=== PATIENT | female | born 1990 | race American Indian/Alaskan Native ===

== ENCOUNTER 2016-08-15 22:42 | Emergency (ER) | payer BC ==
[2016-08-15 23:42] LABS: Basophils % (Auto) 0.3 % (0.0-1.8); Eosinophils % (Auto) 2.2 % (0.0-4.3); Hematocrit 41.2 % (30.3-42.9); Hemoglobin 13.3 gm/dl (10.1-14.3); Mean Corpuscular HGB Conc 32 % (30-34); Mean Corpuscular Hemoglobin 28 pg (28-32); Mean Corpuscular Volume 87 fl (79-97); Platelet Count 230 K/mm3 (140-440); Red Blood Count 4.71 M/mm3 (3.65-5.03); Red Cell Distribution Width 14.4 % (13.2-15.2); White Blood Count 5.5 K/mm3 (4.5-11.0)
[2016-08-15 23:58] LABS: Anion Gap 21 mmol/L; BUN/Creatinine Ratio 21.42; Blood Urea Nitrogen 15 mg/dL (7-17); Calcium 9.3 mg/dL (8.4-10.2); Carbon Dioxide 18 mmol/L (22-30); Chloride 100.8 mmol/L (98-107); Glucose 86 mg/dL (65-100); Sodium 136 mmol/L (137-145)
[2016-08-16 04:10] LABS: Bacteria,Urine 1+ /HPF (Negative); Bilirubin,Urine NEG (Negative); Blood,Urine NEG (Negative); Ketones,Urine NEG (Negative); Leukocyte Esterase,Urine LG (Negative); Mucus,Urine 2+ /HPF; Nitrite,Urine NEG (Negative); Protein,Urine <15 mg/dL mg/dL (Negative); Urobilinogen,Urine < 2.0 mg/dL (<2.0)
--- NOTE | 2016-08-16 11:12 | Emergency Department Report ---
ED Chest Pain HPI - General Chief Complaint: Chest Pain Stated Complaint: ABD PAIN/CHEST PAIN/DIZZINESS Time Seen by Provider: 08/16/16 10:37 Source: patient Mode of arrival: Ambulatory Limitations: No Limitations - History of Present Illness Initial Comments: Patient is a 26-year-old female here with complaint of chest pain and lightheadedness with standing for the last week. Patient states that the pain is in the center of her chest does not radiate and is sometimes worse with exertion. She does not complain of pain with deep breath. No recent travel she is not on oral control. No fevers chills nausea vomiting. She has no other medical problems. MD Complaint: chest pain -: week(s) (1) Onset: during rest, during exertion Pain Location: substernal Pain Radiation: none Severity: mild Severity scale (0 -10): 5 Improves With: nothing Worsens With: nothing re: denies: nausea, vomting, diaphoresis, dyspnea, sense of impending doom Other Symptoms: denies: cough, fever, syncope, rash, acid taste in mouth, leg swelling - Related Data Previous Rx's Medication Instructions Recorded Last Taken Type Cetirizine HCl [ZyrTEC] 10 mg PO DAILY #20 capsule 11/24/15 Unknown Rx Sulfamethoxazole/Trimethoprim 1 each PO BID #20 tablet 11/24/15 Unknown Rx [Bactrim DS TAB] Ibuprofen [Motrin 600 MG tab] 600 mg PO Q8H PRN #30 tablet 08/16/16 Unknown Rx Allergies Allergy/AdvReac Type Severity Reaction Status Date / Time No Known Allergies Allergy Verified 04/20/14 20:42 Heart Score - HEART Score History: Slightly suspicious EKG: Normal Age: < 45 Risk factors: No known risk factors Troponin: < normal limit HEART Score: 0 - Critical Actions Critical Actions: 0-3 pts:0.9-1.7%risk of adverse cardiac event.Candidate for discharge ED Review of Systems ROS: Stated complaint: ABD PAIN/CHEST PAIN/DIZZINESS Other details as noted in HPI Constitutional: denies: chills, fever Eyes: denies: eye pain, eye discharge, vision change ENT: denies: ear pain, throat pain Respiratory: denies: cough, shortness of breath, wheezing Cardiovascular: denies: chest pain, palpitations Endocrine: no symptoms reported Gastrointestinal: denies: abdominal pain, nausea, diarrhea Genitourinary: denies: urgency, dysuria, discharge Musculoskeletal: denies: back pain, joint swelling, arthralgia Skin: denies: rash, lesions Neurological: denies: headache, weakness, paresthesias Psychiatric: denies: anxiety, depression Hematological/Lymphatic: denies: easy bleeding, easy bruising ED Past Medical Hx - Past Medical History Previous Medical History?: Yes Hx GERD: Yes Additional medical history: Denies any previous medical history - Surgical History Hx Appendectomy: Yes - Social History Smoking Status: Never Smoker - Medications Home Medications: Home Medications Medication Instructions Recorded Confirmed Last Taken Type Cetirizine HCl [ZyrTEC] 10 mg PO DAILY #20 capsule 11/24/15 Unknown Rx Sulfamethoxazole/Trimethoprim 1 each PO BID #20 tablet 11/24/15 Unknown Rx [Bactrim DS TAB] Ibuprofen [Motrin 600 MG tab] 600 mg PO Q8H PRN #30 tablet 08/16/16 Unknown Rx ED Physical Exam - General Limitations: No Limitations ED Course Vital Signs 08/15/16 08/16/16 08/16/16 23:08 03:26 10:10 Temperature 99.5 F 98.5 F 98 F Pulse Rate 95 H 78 71 Respiratory 20 16 16 Rate Blood Pressure 119/80 123/76 Blood Pressure 101/70 [Left] O2 Sat by Pulse 98 100 100 Oximetry 08/16/16 11:26 Temperature Pulse Rate Respiratory 16 Rate Blood Pressure Blood Pressure [Left] O2 Sat by Pulse Oximetry MARGE score - Marge Score Age > 65: (0) No Aspirin use within the Past 7 Days: (0) No 3 or more CAD Risk Factors: (0) No 2 or more Angina events in past 24 hrs: (0) No Known CAD with more than 50% Stenosis: (0) No Elevated Cardiac Markers: (0) No ST Deviation Greater than 0.5mm: (0) No MARGE Score: 0 ED Medical Decision Making - Lab Data Result diagrams: 08/15/16 23:20 08/15/16 23:20 Laboratory Results - last 24 hr 08/15/16 08/15/16 08/15/16 23:20 23:20 23:20 WBC 5.5 RBC 4.71 Hgb 13.3 Hct 41.2 MCV 87 MCH 28 MCHC 32 RDW 14.4 Plt Count 230 Lymph % (Auto) 50.8 H [place] % (Auto) 8.4 H Eos % (Auto) 2.2 Baso % (Auto) 0.3 Lymph # 2.8 Bath # 0.5 Eos # 0.1 Baso # 0.0 Seg Neutrophils % 38.3 L Seg Neutrophils # 2.1 D-Dimer Sodium 136 L Potassium 4.0 Chloride 100.8 Carbon Dioxide 18 L Anion Gap 21 BUN 15 Creatinine 0.7 Estimated GFR > 60 BUN/Creatinine Ratio 21.42 Glucose 86 Calcium 9.3 Troponin T < 0.010 Lipase HCG, Qual Negative Urine Color Urine Turbidity Urine pH Ur Specific [place] Urine Protein Urine Glucose (UA) Urine Ketones Urine Blood Urine Nitrite Urine Bilirubin Urine Urobilinogen Ur Leukocyte Esterase Urine WBC (Auto) Urine RBC (Auto) U Epithel Cells (Auto) Urine Bacteria (Auto) Urine Mucus 08/15/16 08/16/16 08/16/16 23:20 03:09 05:16 WBC RBC Hgb Hct MCV MCH MCHC RDW Plt Count Lymph % (Auto) [place] % (Auto) Eos % (Auto) Baso % (Auto) Lymph # [place] # Eos # Baso # Seg Neutrophils % Seg Neutrophils # D-Dimer Sodium Potassium Chloride Carbon Dioxide Anion Gap BUN Creatinine Estimated GFR BUN/Creatinine Ratio Glucose Calcium Troponin T < 0.010 Lipase 24 HCG, Qual Urine Color Yellow Urine Turbidity Clear Urine pH 5.0 Ur Specific [place] 1.028 Urine Protein <15 mg/dl Urine Glucose (UA) Neg Urine Ketones Neg Urine Blood Neg Urine Nitrite Neg Urine Bilirubin Neg Urine Urobilinogen < 2.0 Ur Leukocyte Esterase Lg Urine WBC (Auto) 13.0 H Urine RBC (Auto) 5.0 U Epithel Cells (Auto) 6.0 Urine Bacteria (Auto) 1+ Urine Mucus 2+ 08/16/16 08/16/16 09:00 11:38 WBC RBC Hgb Hct MCV MCH MCHC RDW Plt Count Lymph % (Auto) [place] % (Auto) Eos % (Auto) Baso % (Auto) Lymph # [place] # Eos # Baso # Seg Neutrophils % Seg Neutrophils # D-Dimer 213.55 Sodium Potassium Chloride Carbon Dioxide Anion Gap BUN Creatinine Estimated GFR BUN/Creatinine Ratio Glucose Calcium Troponin T < 0.010 Lipase HCG, Qual Urine Color Urine Turbidity Urine pH Ur Specific [place] Urine Protein Urine Glucose (UA) Urine Ketones Urine Blood Urine Nitrite Urine Bilirubin Urine Urobilinogen Ur Leukocyte Esterase Urine WBC (Auto) Urine RBC (Auto) U Epithel Cells (Auto) Urine Bacteria (Auto) Urine Mucus - EKG Data -: EKG Interpreted by Me - EKG Data 08/16/16 13:22 EKG sinus 80 normal axis normal intervals mild T-wave flattening in V4 through V6 no ST-T changes - Medical Decision Making Patient is a 26-year-old female who presents emergency Department with complaints of chest pain and lightheadedness for several days. Chest pain is very atypical and she has no risk factors for ACS. Her EKG shows normal sinus rhythm 80. She is low risk for PE and her d-dimer places her extremely low- risk. No plan to CT PE. Plan to discharge home with NSAIDs and have her follow -up. Portions of this chart were dictated with dictation software. There may be dictation errors contained within this note. Critical care attestation.: If time is entered above; I have spent that time in minutes in the direct care of this critically ill patient, excluding procedure time. ED Disposition Clinical Impression: Chest pain Disposition: DC-01 TO HOME OR SELFCARE Is pt being admited?: No Does the pt Need Aspirin: No Condition: Stable Instructions: Chest Pain (ED) Prescriptions: Ibuprofen [Motrin 600 MG tab] 600 mg PO Q8H PRN #30 tablet PRN Reason: Pain Referrals: PRIMARY CARE, [Primary Care Provider] - 3-5 Days
[2016-08-16 11:27] VITALS: BP 101/70
--- NOTE | 2016-08-16 11:41 | XRay Report ---
ROUTINE CHEST, TWO VIEWS: HISTORY: chest pain. The trachea, heart, mediastinal contour, lung lockhart and bony thorax are unremarkable. No significant change since 04/29/14 other than removal of a left arm PICC. IMPRESSION: Unremarkable chest x-ray.
== END 2016-08-16 13:46 | disposition home or self-care (01) ==
LOC: ED 22:42
DX: R07.9 Chest pain, unspecified (principal); K21.9 Gastro-esophageal reflux disease without esophagitis
CPT/HCPCS: 36415; 71020; 80048; 81001; 83690; 84484; 84703; 85025; 85379; 93005; 93010; 99285

== ENCOUNTER 2018-04-24 08:05 | Emergency (ER) | payer SELFPAY ==
[2018-04-24 08:11] VITALS: BP 117/85
[2018-04-24] MEDS ORDERED: NACL 0.9% 1000 ML 1,000 ML IV ONE (08:46)
[2018-04-24] MEDS ORDERED: BENTYL IM ONE (08:46)
[2018-04-24] MEDS ORDERED: ZOFRAN IV ONE (08:46)
[2018-04-24] MEDS ORDERED: PEPCID IV ONE (08:46)
--- NOTE | 2018-04-24 08:53 | Emergency Department Report ---
Vomiting/Diarrhea - HPI Chief Complaint: Abdominal Pain Stated Complaint: ABD PAIN Time Seen by Provider: 04/24/18 08:36 Duration: 3 Days Severity: moderate Nausea/Vomiting Severity: Moderate Diarrhea Severity: Moderate Pain Location: Generalized Pain Severity: Mild Symptoms: Yes Watery Diarrhea, Yes Able to Tolerate Fluids (patient is able to tolerate water only. She is been able to drink small amounts.), No Bloody diarrhea, No Fever, No Recent Unusual Foods, No Recent Untreated Water, No Recent use of Antibiotics, No Family w/ Similar Symptoms, No Contacts w/ Similar Symptoms, No Rash, No Hematuria, No Recent URI Symptoms ED Review of Systems ROS: Stated complaint: ABD PAIN Other details as noted in HPI Comment: All other systems reviewed and negative ED Past Medical Hx - Past Medical History Previous Medical History?: No Hx GERD: Yes Additional medical history: Denies any previous medical history - Surgical History Past Surgical History?: Yes Hx Appendectomy: Yes (2015) - Social History Smoking Status: Never Smoker Substance Use Type: Alcohol - Medications Home Medications: Home Medications Medication Instructions Recorded Confirmed Last Taken Type Cetirizine HCl [ZyrTEC] 10 mg PO DAILY #20 capsule 11/24/15 Unknown Rx Sulfamethoxazole/Trimethoprim 1 each PO BID #20 tablet 11/24/15 Unknown Rx [Bactrim DS TAB] Ibuprofen [Motrin 600 MG tab] 600 mg PO Q8H PRN #30 tablet 08/16/16 Unknown Rx Dicyclomine [Bentyl] 10 mg PO QID #15 capsule 04/24/18 Unknown Rx Ondansetron [Zofran Odt] 4 mg PO Q8HR PRN #10 tab.rapdis 04/24/18 Unknown Rx traMADol [Ultram] 50 mg PO Q6HR PRN #10 tablet 04/24/18 Unknown Rx Vomiting Diarrhea Exam - Exam General: Vital signs noted. No distress. Alert and acting appropriately. HEENT: Yes Moist Mucous Membranes, No Pharyngeal Erythema, No Pharyngeal Exudates, No Rhinorrhea, No Conjuctival Injection, No Frontal Tenderness, No Maxillary Tenderness Neck: No Adenopathy, No Rigidity Lungs: Yes Clear Lung Sounds, Yes Good Air Exchange, No Wheezes, No Stridor, No Cough, No Nasal Flaring, No Retractions, No Use of Accessory Muscles Heart exam: Regular: Yes, Murmur: No, Tachycardia: No Abdomen: Tenderness: Yes (diffuse tenderness), Peritoneal Signs: No, Distention: No, Hyperactive Bowel sounds: No Skin exam: Rash: No, Edema: No, Normal turgor: Yes Neurologic: Alert and oriented, no deficits. Musculoskeletal: Unremarkable. ED Course Vital Signs 04/24/18 04/24/18 08:10 08:11 Temperature 98.0 F Pulse Rate 85 Respiratory 14 Rate Blood Pressure 117/85 O2 Sat by Pulse 98 Oximetry ED Medical Decision Making - Lab Data Result diagrams: 04/24/18 08:59 04/24/18 08:59 Lab Results 04/24/18 04/24/18 04/24/18 Range/Units 08:43 08:59 08:59 WBC 5.3 (4.5-11.0) K/mm3 RBC 4.52 (3.65-5.03) M/mm3 Hgb 12.8 (10.1-14.3) gm/dl Hct 39.3 (30.3-42.9) % MCV 87 (79-97) fl MCH 28 (28-32) pg MCHC 33 (30-34) % RDW 14.8 (13.2-15.2) % Plt Count 219 (140-440) K/mm3 Lymph % (Auto) 49.3 H (13.4-35.0) % [place] % (Auto) 13.6 H (0.0-7.3) % Eos % (Auto) 1.1 (0.0-4.3) % Baso % (Auto) 0.4 (0.0-1.8) % Lymph # 2.6 (1.2-5.4) K/mm3 [place] # 0.7 (0.0-0.8) K/mm3 Eos # 0.1 (0.0-0.4) K/mm3 Baso # 0.0 (0.0-0.1) K/mm3 Seg Neutrophils % 35.6 L (40.0-70.0) % Seg Neutrophils # 1.9 (1.8-7.7) K/mm3 Sodium 137 (137-145) mmol/L Potassium 4.6 (3.6-5.0) mmol/L Chloride 105.9 (98-107) mmol/L Carbon Dioxide 25 (22-30) mmol/L Anion Gap 11 mmol/L BUN 16 (7-17) mg/dL Creatinine 0.7 (0.7-1.2) mg/dL Estimated GFR > 60 ml/min BUN/Creatinine Ratio 23 % Glucose 101 H (65-100) mg/dL Calcium 9.2 (8.4-10.2) mg/dL Total Bilirubin < 0.20 (0.1-1.2) mg/dL AST 15 (5-40) units/L ALT 15 (7-56) units/L Alkaline Phosphatase 47 (35-129) units/L Total Protein 7.6 (6.3-8.2) g/dL Albumin 4.4 (3.9-5) g/dL Albumin/Globulin Ratio 1.4 % Lipase 31 (13-60) units/L Urine Color Yellow (Yellow) Urine Turbidity Clear (Clear) Urine pH 5.0 (5.0-7.0) Ur Specific [place] 1.032 H (1.003-1.030) Urine Protein <15 mg/dl (Negative) mg/dL Urine Glucose (UA) Neg (Negative) mg/dL Urine Ketones Neg (Negative) mg/dL Urine Blood Neg (Negative) Urine Nitrite Neg (Negative) Urine Bilirubin Neg (Negative) Urine Urobilinogen < 2.0 (<2.0) mg/dL Ur Leukocyte Esterase Neg (Negative) Urine WBC (Auto) 4.0 (0.0-6.0) /HPF Urine RBC (Auto) 4.0 (0.0-6.0) /HPF U Epithel Cells (Auto) 2.0 (0-13.0) /HPF Urine Bacteria (Auto) 1+ (Negative) /HPF Urine Mucus 1+ /HPF Urine HCG, Qual Negative (Negative) - Radiology Data KUB shows no acute process - Medical Decision Making Patient likely with a simple gastroenteritis likely from a viral source. Pat ient be given meds for symptomatic relief will be discharged home. Critical care attestation.: If time is entered above; I have spent that time in minutes in the direct care of this critically ill patient, excluding procedure time. ED Disposition Clinical Impression: Gastroenteritis Disposition: DC-01 TO HOME OR SELFCARE Is pt being admited?: No Does the pt Need Aspirin: No Condition: Stable Instructions: Gastroenteritis (ED) Referrals: PAULA MILLIGAN MD [Primary Care Provider] - 3-5 Days Time of Disposition: 10:13
[2018-04-24 09:03] LABS: Bacteria,Urine 1+ /HPF (Negative); Bilirubin,Urine NEG (Negative); Blood,Urine NEG (Negative); Color,Urine Yellow (Yellow); Mucus,Urine 1+ /HPF; Protein,Urine <15 mg/dL mg/dL (Negative); Urobilinogen,Urine < 2.0 mg/dL (<2.0)
[2018-04-24 09:04] LABS: HCG Qualitative,Urine Negative (Negative)
[2018-04-24 09:10] LABS: Basophils % (Auto) 0.4 % (0.0-1.8); Eosinophils # (Auto) 0.1 K/mm3 (0.0-0.4); Eosinophils % (Auto) 1.1 % (0.0-4.3); Hematocrit 39.3 % (30.3-42.9); Hemoglobin 12.8 gm/dl (10.1-14.3); Lymphocytes # (Auto) 2.6 K/mm3 (1.2-5.4); Lymphocytes % (Auto) 49.3 % (13.4-35.0); Mean Corpuscular HGB Conc 33 % (30-34); Mean Corpuscular Volume 87 fl (79-97); Monocytes # (Auto) 0.7 K/mm3 (0.0-0.8); Monocytes % (Auto) 13.6 % (0.0-7.3); Platelet Count 219 K/mm3 (140-440); Red Blood Count 4.52 M/mm3 (3.65-5.03); Red Cell Distribution Width 14.8 % (13.2-15.2)
--- NOTE | 2018-04-24 09:23 | XRay Report ---
AP ABDOMEN: HISTORY: Nausea, vomiting, and diarrhea. The abdominal gas pattern is unremarkable. No masses or organomegaly is identified and there is no gross evidence of free air or fluid. No significant soft tissue calcifications are noted. Surgical clips are noted in the right abdomen the level of L5, correlate with history IMPRESSION: Unremarkable abdomen.
[2018-04-24 09:28] LABS: Alanine Aminotransferase 15 units/L (7-56); Albumin 4.4 g/dL (3.9-5); BUN/Creatinine Ratio 23; Blood Urea Nitrogen 16 mg/dL (7-17); Calcium 9.2 mg/dL (8.4-10.2); Hemolysis Index 2
== END 2018-04-24 10:28 | disposition home or self-care (01) ==
LOC: ED 08:05
DX: K52.9 Noninfective gastroenteritis and colitis, unspecified (principal); K21.9 Gastro-esophageal reflux disease without esophagitis; Z90.89 Acquired absence of other organs
CPT/HCPCS: 36415; 74018; 80053; 81001; 81025; 83690; 85025; 96361; 96372; 96374; 96375; 99284; J0500; J2405; J7030

== ENCOUNTER 2018-08-30 08:46 | Emergency (ER) | payer SELFPAY ==
[2018-08-30 08:57] VITALS: BP 118/81
[2018-08-30] MEDS ORDERED: DELTASONE PO ONE (10:41)
--- NOTE | 2018-08-30 10:57 | Emergency Department Report ---
ED ENT HPI - General Chief complaint: Sore Throat Stated complaint: SORE THROAT Time Seen by Provider: 08/30/18 10:15 Source: patient Mode of arrival: Ambulatory Limitations: No Limitations - History of Present Illness Initial comments: Patient is a 28-year-old female who presents to ED complaining of throat pain 4 days. Patient describes pain as throbbing in nature, 5 out of 10 intensity, nonradiating, localized to his throat. Admits pain with swallowing and eating. Patient admits no appetite due to throat pain. Patient admits dry, nonproductive cough. Patient denies fever/nausea/vomiting/abdominal pain/shortness of breath/chest pain/headache. MD complaint: sore throat - Related Data Previous Rx's Medication Instructions Recorded Last Taken Type Cetirizine HCl [ZyrTEC] 10 mg PO DAILY #20 capsule 11/24/15 Unknown Rx Sulfamethoxazole/Trimethoprim 1 each PO BID #20 tablet 11/24/15 Unknown Rx [Bactrim DS TAB] Dicyclomine [Bentyl] 10 mg PO QID #15 capsule 04/24/18 Unknown Rx Ondansetron [Zofran Odt] 4 mg PO Q8HR PRN #10 tab.rapdis 04/24/18 Unknown Rx traMADol [Ultram] 50 mg PO Q6HR PRN #10 tablet 04/24/18 Unknown Rx Ibuprofen [Motrin 600 MG tab] 600 mg PO Q8H PRN #30 tablet 08/30/18 Unknown Rx Nystas/Diphen/Xyl Visc/Mylanta 15 ml PO Q6H PRN #120 ml 08/30/18 Unknown Rx [Magic Mouthwash] Allergies Allergy/AdvReac Type Severity Reaction Status Date / Time No Known Allergies Allergy Verified 04/24/18 08:06 ED Dental HPI - General Chief complaint: Sore Throat Stated complaint: SORE THROAT Time Seen by Provider: 08/30/18 10:15 Source: patient Mode of arrival: Ambulatory Limitations: No Limitations - Related Data Previous Rx's Medication Instructions Recorded Last Taken Type Cetirizine HCl [ZyrTEC] 10 mg PO DAILY #20 capsule 11/24/15 Unknown Rx Sulfamethoxazole/Trimethoprim 1 each PO BID #20 tablet 11/24/15 Unknown Rx [Bactrim DS TAB] Dicyclomine [Bentyl] 10 mg PO QID #15 capsule 04/24/18 Unknown Rx Ondansetron [Zofran Odt] 4 mg PO Q8HR PRN #10 tab.rapdis 04/24/18 Unknown Rx traMADol [Ultram] 50 mg PO Q6HR PRN #10 tablet 04/24/18 Unknown Rx Ibuprofen [Motrin 600 MG tab] 600 mg PO Q8H PRN #30 tablet 08/30/18 Unknown Rx Nystas/Diphen/Xyl Visc/Mylanta 15 ml PO Q6H PRN #120 ml 08/30/18 Unknown Rx [Magic Mouthwash] Allergies Allergy/AdvReac Type Severity Reaction Status Date / Time No Known Allergies Allergy Verified 04/24/18 08:06 ED Review of Systems ROS: Stated complaint: SORE THROAT Other details as noted in HPI Comment: All other systems reviewed and negative ED Past Medical Hx - Past Medical History Hx GERD: Yes Additional medical history: Denies any previous medical history - Surgical History Past Surgical History?: Yes Hx Appendectomy: Yes (2015) - Social History Smoking Status: Never Smoker Substance Use Type: Alcohol - Medications Home Medications: Home Medications Medication Instructions Recorded Confirmed Last Taken Type Cetirizine HCl [ZyrTEC] 10 mg PO DAILY #20 capsule 11/24/15 Unknown Rx Sulfamethoxazole/Trimethoprim 1 each PO BID #20 tablet 11/24/15 Unknown Rx [Bactrim DS TAB] Dicyclomine [Bentyl] 10 mg PO QID #15 capsule 04/24/18 Unknown Rx Ondansetron [Zofran Odt] 4 mg PO Q8HR PRN #10 tab.rapdis 04/24/18 Unknown Rx traMADol [Ultram] 50 mg PO Q6HR PRN #10 tablet 04/24/18 Unknown Rx Ibuprofen [Motrin 600 MG tab] 600 mg PO Q8H PRN #30 tablet 08/30/18 Unknown Rx Nystas/Diphen/Xyl Visc/Mylanta 15 ml PO Q6H PRN #120 ml 08/30/18 Unknown Rx [Magic Mouthwash] ED Physical Exam - General Limitations: No Limitations General appearance: alert, in no apparent distress - Head Head exam: Present: atraumatic, normocephalic - Eye Eye exam: Present: normal appearance - ENT ENT exam: Present: mucous membranes moist - Expanded ENT Exam Expanded Throat exam: Positive: tonsillar erythema. Negative: tonsillomegaly, tonsillar exudate, R peritonsillar mass, L peritonsillar mass - Neck Neck exam: Present: normal inspection, full ROM. Absent: tenderness, lymphadenopathy - Respiratory Respiratory exam: Present: normal lung sounds bilaterally. Absent: respiratory distress, wheezes, rales - Cardiovascular Cardiovascular Exam: Present: regular rate, normal rhythm. Absent: systolic murmur, diastolic murmur, rubs, gallop - GI/Abdominal GI/Abdominal exam: Present: soft, normal bowel sounds - Extremities Exam Extremities exam: Present: normal inspection - Back Exam Back exam: Present: normal inspection - Neurological Exam Neurological exam: Present: alert, oriented X3 - Psychiatric Psychiatric exam: Present: normal affect, normal mood - Skin Skin exam: Present: warm, dry, intact, normal color. Absent: rash ED Course Vital Signs 08/30/18 08:55 Temperature 99.1 F Pulse Rate 88 Respiratory 16 Rate Blood Pressure 118/81 O2 Sat by Pulse 98 Oximetry ED Medical Decision Making - Medical Decision Making 28-year-old male presents with pharyngitis. ED course: Rapid strep tests ordered rapid strep test negative Patient received 60 mg of prednisone. There was no fever during ED stay Vital signs stable patient is in no acute or respiratory distress. No airway implants Discussed findings with patient about the positive strep. Discussed treatment in ED with patient Discussed with patient follow-up with primary care physician. Patient verbally states he understands and will comply to follow-up. Critical care attestation.: If time is entered above; I have spent that time in minutes in the direct care of this critically ill patient, excluding procedure time. ED Disposition Clinical Impression: Acute tonsillitis Disposition: DC-01 TO HOME OR SELFCARE Is pt being admited?: No Does the pt Need Aspirin: No Condition: Stable Instructions: Tonsillitis (ED) Additional Instructions: Make sure to follow up with the primary care physician as discussed. Take all your medications as you've been prescribed. If you have any worsening symptoms or develop new symptoms please return to ED immediately. Prescriptions: Nystas/Diphen/Xyl Visc/Mylanta [Magic Mouthwash] 15 ml PO Q6H PRN #120 ml PRN Reason: Sore Throat Ibuprofen [Motrin 600 MG tab] 600 mg PO Q8H PRN #30 tablet PRN Reason: Pain Referrals: [facility] [Provider Group] - 3-5 Days Forms: Accompanied Note, Work/School Release Form(ED) Time of Disposition: 11:13
== END 2018-08-30 11:38 | disposition home or self-care (01) ==
LOC: ED 08:46
DX: J03.90 Acute tonsillitis, unspecified (principal); K21.9 Gastro-esophageal reflux disease without esophagitis; Z90.49 Acquired absence of other specified parts of digestive tract; Z79.899 Other long term (current) drug therapy
CPT/HCPCS: 87116; 87430; 99283; J7512

== ENCOUNTER 2018-10-22 10:22 | Emergency (ER) | payer SELFPAY ==
[2018-10-22 10:46] VITALS: BP 110/64
[2018-10-22] MEDS ORDERED: DECADRON IM ONE (12:52)
[2018-10-22] MEDS ORDERED: IBUPROFEN PO ONE (12:55)
--- NOTE | 2018-10-22 12:55 | Emergency Department Report ---
ED ENT HPI - General Chief complaint: Sore Throat Stated complaint: COUGHING BLOOD/SOB/SORE THROAT Time Seen by Provider: 10/22/18 12:13 Source: patient Mode of arrival: Ambulatory Limitations: No Limitations - History of Present Illness Initial comments: This is a 28-year-old -[place] female who presents to the emergency room with sore throat since wakening this morning. Patient reports difficulty swallowing. She has not taken anything for symptomatic relief. She denies fever, chills, cough, shortness of breath, palpitations, nausea, vomiting, or rhinorrhea. MD complaint: sore throat -: This morning Location: throat Severity: moderate Severity scale (0 -10): 8 Quality: aching Consistency: constant Improves with: none Worsens with: swallowing, eating Associated Symptoms: pain with swallowing, sore throat. denies: fever, cough, gum swelling, toothache, tinnitus, hearing loss, discharge from ear, rhinorrhea - Related Data Previous Rx's Medication Instructions Recorded Last Taken Type Cetirizine HCl [ZyrTEC] 10 mg PO DAILY #20 capsule 11/24/15 Unknown Rx Sulfamethoxazole/Trimethoprim 1 each PO BID #20 tablet 11/24/15 Unknown Rx [Bactrim DS TAB] Dicyclomine [Bentyl] 10 mg PO QID #15 capsule 04/24/18 Unknown Rx Ondansetron [Zofran Odt] 4 mg PO Q8HR PRN #10 tab.rapdis 04/24/18 Unknown Rx traMADol [Ultram] 50 mg PO Q6HR PRN #10 tablet 04/24/18 Unknown Rx Ibuprofen [Motrin 600 MG tab] 600 mg PO Q8H PRN #30 tablet 08/30/18 Unknown Rx Nystas/Diphen/Xyl Visc/Mylanta 15 ml PO Q6H PRN #120 ml 08/30/18 Unknown Rx [Magic Mouthwash] Ibuprofen [Motrin 600 MG tab] 600 mg PO Q8H PRN #20 tablet 10/22/18 Unknown Rx Penicillin V Potassium 500 mg PO BID #20 tablet 10/22/18 Unknown Rx methylPREDNISolone [Medrol 4MG 4 mg PO DAILY #1 tab.ds.pk 10/22/18 Unknown Rx DOSEPAK (21 tabs)] Allergies Allergy/AdvReac Type Severity Reaction Status Date / Time tramadol [From Ultram] Allergy Hives Verified 10/22/18 10:29 ED Dental HPI - General Chief complaint: Sore Throat Stated complaint: COUGHING BLOOD/SOB/SORE THROAT Time Seen by Provider: 10/22/18 12:13 Source: patient Mode of arrival: Ambulatory Limitations: No Limitations - Related Data Previous Rx's Medication Instructions Recorded Last Taken Type Cetirizine HCl [ZyrTEC] 10 mg PO DAILY #20 capsule 11/24/15 Unknown Rx Sulfamethoxazole/Trimethoprim 1 each PO BID #20 tablet 11/24/15 Unknown Rx [Bactrim DS TAB] Dicyclomine [Bentyl] 10 mg PO QID #15 capsule 04/24/18 Unknown Rx Ondansetron [Zofran Odt] 4 mg PO Q8HR PRN #10 tab.rapdis 04/24/18 Unknown Rx traMADol [Ultram] 50 mg PO Q6HR PRN #10 tablet 04/24/18 Unknown Rx Ibuprofen [Motrin 600 MG tab] 600 mg PO Q8H PRN #30 tablet 08/30/18 Unknown Rx Nystas/Diphen/Xyl Visc/Mylanta 15 ml PO Q6H PRN #120 ml 08/30/18 Unknown Rx [Magic Mouthwash] Ibuprofen [Motrin 600 MG tab] 600 mg PO Q8H PRN #20 tablet 10/22/18 Unknown Rx Penicillin V Potassium 500 mg PO BID #20 tablet 10/22/18 Unknown Rx methylPREDNISolone [Medrol 4MG 4 mg PO DAILY #1 tab.ds.pk 10/22/18 Unknown Rx DOSEPAK (21 tabs)] Allergies Allergy/AdvReac Type Severity Reaction Status Date / Time tramadol [From Ultram] Allergy Hives Verified 10/22/18 10:29 ED Review of Systems ROS: Stated complaint: COUGHING BLOOD/SOB/SORE THROAT Other details as noted in HPI Constitutional: denies: chills, fever ENT: throat pain. denies: ear pain, dental pain, congestion Respiratory: denies: cough, shortness of breath, wheezing Cardiovascular: denies: chest pain, palpitations Gastrointestinal: denies: abdominal pain, nausea, diarrhea Skin: denies: rash, lesions Neurological: denies: headache, weakness, paresthesias Psychiatric: denies: anxiety, depression ED Past Medical Hx - Past Medical History Previous Medical History?: Yes Hx GERD: Yes Additional medical history: Denies any previous medical history - Surgical History Past Surgical History?: Yes Hx Appendectomy: Yes (2016) - Social History Smoking Status: Never Smoker Substance Use Type: Alcohol - Medications Home Medications: Home Medications Medication Instructions Recorded Confirmed Last Taken Type Cetirizine HCl [ZyrTEC] 10 mg PO DAILY #20 capsule 11/24/15 Unknown Rx Sulfamethoxazole/Trimethoprim 1 each PO BID #20 tablet 11/24/15 Unknown Rx [Bactrim DS TAB] Dicyclomine [Bentyl] 10 mg PO QID #15 capsule 04/24/18 Unknown Rx Ondansetron [Zofran Odt] 4 mg PO Q8HR PRN #10 tab.rapdis 04/24/18 Unknown Rx traMADol [Ultram] 50 mg PO Q6HR PRN #10 tablet 04/24/18 Unknown Rx Ibuprofen [Motrin 600 MG tab] 600 mg PO Q8H PRN #30 tablet 08/30/18 Unknown Rx Nystas/Diphen/Xyl Visc/Mylanta 15 ml PO Q6H PRN #120 ml 08/30/18 Unknown Rx [Magic Mouthwash] Ibuprofen [Motrin 600 MG tab] 600 mg PO Q8H PRN #20 tablet 10/22/18 Unknown Rx Penicillin V Potassium 500 mg PO BID #20 tablet 10/22/18 Unknown Rx methylPREDNISolone [Medrol 4MG 4 mg PO DAILY #1 tab.ds.pk 10/22/18 Unknown Rx DOSEPAK (21 tabs)] ED Physical Exam - General Limitations: No Limitations General appearance: alert, in no apparent distress, obese (morbility) - ENT ENT exam: Present: normal orophraynx (erythematous enlarged tonsils without exudate, uvula midline), mucous membranes moist, TM's normal bilaterally, normal external ear exam - Neck Neck exam: Present: normal inspection - Respiratory Respiratory exam: Present: normal lung sounds bilaterally. Absent: respiratory distress - Cardiovascular Cardiovascular Exam: Present: regular rate, normal rhythm. Absent: systolic murmur, diastolic murmur, rubs, gallop - GI/Abdominal GI/Abdominal exam: Present: soft, normal bowel sounds. Absent: distended, tenderness, guarding, rebound, rigid - Neurological Exam Neurological exam: Present: alert, oriented X3 - Psychiatric Psychiatric exam: Present: normal affect, normal mood - Skin Skin exam: Present: warm, dry, intact, normal color. Absent: rash ED Course Vital Signs 10/22/18 10:45 Temperature 98.3 F Pulse Rate 94 H Respiratory 20 Rate Blood Pressure 110/64 O2 Sat by Pulse 96 Oximetry ED Medical Decision Making - Lab Data Lab Results 10/22/18 Range/Units Unknown Group A Strep Rapid Negative (Negative) - Medical Decision Making Patient examined by me and stable. No distress noted. Vitals stable. Rapid strep obtained and negative. Centor criteria score of 2 strep throat. Patient will still be treated for acute pharyngitis. Start penicillin V, Medrol dosepak, and ibuprofen. Discussed plan with patient and she agreed with plan to treat outpatient. Discharged home. Return to work tomorrow. Follow up with PCP in 48- 72 hours. Critical care attestation.: If time is entered above; I have spent that time in minutes in the direct care of this critically ill patient, excluding procedure time. ED Disposition Clinical Impression: Sore throat Acute pharyngitis, unspecified Qualifiers: Pharyngitis/tonsillitis etiology: unspecified etiology Qualified Code(s): J02.9 - Acute pharyngitis, unspecified Disposition: DC-01 TO HOME OR SELFCARE Is pt being admited?: No Does the pt Need Aspirin: No Condition: Stable Instructions: Pharyngitis (ED) Additional Instructions: Expect symptoms to improve within 3 or 4 days. There is no need for bed rest or isolation. Use Tylenol or ibuprofen for symptoms of sore throat, headache, and fever. Return to work in 24 hours of taking antibiotics. Follow up with Primary Care Provider in 48-72 hours. Prescriptions: methylPREDNISolone [Medrol 4MG DOSEPAK (21 tabs)] 4 mg PO DAILY #1 tab.ds.pk Ibuprofen [Motrin 600 MG tab] 600 mg PO Q8H PRN #20 tablet PRN Reason: Pain Penicillin V Potassium 500 mg PO BID #20 tablet Referrals: [facility] [Outside] - 3-5 Days [facility] [Outside] - 3-5 Days [facility] [Outside] - 3-5 Days Forms: Work/School Release Form(ED) Time of Disposition: 14:24
== END 2018-10-22 14:38 | disposition home or self-care (01) ==
LOC: ED 10:22
DX: J02.9 Acute pharyngitis, unspecified (principal); K21.9 Gastro-esophageal reflux disease without esophagitis; Z88.5 Allergy status to narcotic agent; Z79.899 Other long term (current) drug therapy; Z79.1 Long term (current) use of non-steroidal anti-inflammatories (NSAID); Z90.49 Acquired absence of other specified parts of digestive tract
CPT/HCPCS: 87116; 87430; 96372; 99283; J1100

== ENCOUNTER 2019-12-13 23:25 | Emergency (ER) | payer SELFPAY ==
[2019-12-14 01:03] LABS: Basophils % (Auto) 0.3 % (0.0-1.8); Eosinophils # (Auto) 0.1 K/mm3 (0.0-0.4); Eosinophils % (Auto) 1.1 % (0.0-4.3); Hematocrit 37.3 % (30.3-42.9); Hemoglobin 12.4 gm/dl (10.1-14.3); Lymphocytes # (Auto) 3.8 K/mm3 (1.2-5.4); Lymphocytes % (Auto) 51.5 % (13.4-35.0); Mean Corpuscular HGB Conc 33 % (30-34); Mean Corpuscular Volume 86 fl (79-97); Monocytes # (Auto) 0.7 K/mm3 (0.0-0.8); Platelet Count 236 K/mm3 (140-440); Red Blood Count 4.35 M/mm3 (3.65-5.03); Red Cell Distribution Width 15.1 % (13.2-15.2)
[2019-12-14 01:19] LABS: Alanine Aminotransferase 14 units/L (7-56); Albumin 4.3 g/dL (3.9-5); BUN/Creatinine Ratio 17; Blood Urea Nitrogen 17 mg/dL (7-17); Calcium 9.7 mg/dL (8.4-10.2); Hemolysis Index 0
[2019-12-14 01:53] LABS: Bilirubin,Urine NEG (Negative); Blood,Urine NEG (Negative); Color,Urine Yellow (Yellow); Mucus,Urine FEW /HPF; Protein,Urine <15 mg/dL mg/dL (Negative); Urobilinogen,Urine < 2.0 mg/dL (<2.0)
--- NOTE | 2019-12-14 04:59 | Emergency Department Report ---
- General Chief Complaint: Nausea/Vomiting/Diarrhea Stated Complaint: VOMITING DIZZINESS Time Seen by Provider: 12/14/19 02:58 Source: patient Mode of arrival: Ambulatory Limitations: No Limitations - History of Present Illness MD Complaint: cough, rhinorrhea -: Gradual Severity: mild Quality: dull Consistency: constant Improves With: nothing Worsens With: nothing Associated Symptoms: chills, rhinorrhea, cough, nausea, diarrhea. denies: chest pain, confusion, right sweats - Related Data Previous Rx's Medication Instructions Recorded Last Taken Type Cetirizine HCl [ZyrTEC] 10 mg PO DAILY #20 capsule 11/24/15 Unknown Rx Sulfamethoxazole/Trimethoprim 1 each PO BID #20 tablet 11/24/15 Unknown Rx [Bactrim DS TAB] Dicyclomine [Bentyl] 10 mg PO QID #15 capsule 04/24/18 Unknown Rx traMADoL [Ultram] 50 mg PO Q6HR PRN #10 tablet 04/24/18 Unknown Rx Ibuprofen [Motrin 600 MG tab] 600 mg PO Q8H PRN #30 tablet 08/30/18 Unknown Rx Nystas/Diphen/Xyl Visc/Mylanta 15 ml PO Q6H PRN #120 ml 08/30/18 Unknown Rx [Magic Mouthwash] Ibuprofen [Motrin 600 MG tab] 600 mg PO Q8H PRN #20 tablet 10/22/18 Unknown Rx Penicillin V Potassium 500 mg PO BID #20 tablet 10/22/18 Unknown Rx methylPREDNISolone [Medrol 4MG 4 mg PO DAILY #1 tab.ds.pk 10/22/18 Unknown Rx DOSEPAK (21 tabs)] Ondansetron [Zofran ODT TAB] 4 mg PO Q8HR PRN #10 tab.rapdis 12/14/19 Unknown Rx Allergies Allergy/AdvReac Type Severity Reaction Status Date / Time tramadol [From Ultram] Allergy Hives Verified 10/22/18 10:29 ED Review of Systems ROS: Stated complaint: VOMITING DIZZINESS Other details as noted in HPI Comment: All other systems reviewed and negative ED Past Medical Hx - Past Medical History Previous Medical History?: Yes Hx GERD: Yes Hx Asthma: Yes Additional medical history: Denies any previous medical history - Surgical History Past Surgical History?: Yes Hx Appendectomy: Yes (2015) - Social History Smoking Status: Never Smoker Substance Use Type: None - Medications Home Medications: Home Medications Medication Instructions Recorded Confirmed Last Taken Type Cetirizine HCl [ZyrTEC] 10 mg PO DAILY #20 capsule 11/24/15 Unknown Rx Sulfamethoxazole/Trimethoprim 1 each PO BID #20 tablet 11/24/15 Unknown Rx [Bactrim DS TAB] Dicyclomine [Bentyl] 10 mg PO QID #15 capsule 04/24/18 Unknown Rx traMADoL [Ultram] 50 mg PO Q6HR PRN #10 tablet 04/24/18 Unknown Rx Ibuprofen [Motrin 600 MG tab] 600 mg PO Q8H PRN #30 tablet 08/30/18 Unknown Rx Nystas/Diphen/Xyl Visc/Mylanta 15 ml PO Q6H PRN #120 ml 08/30/18 Unknown Rx [Magic Mouthwash] Ibuprofen [Motrin 600 MG tab] 600 mg PO Q8H PRN #20 tablet 10/22/18 Unknown Rx Penicillin V Potassium 500 mg PO BID #20 tablet 10/22/18 Unknown Rx methylPREDNISolone [Medrol 4MG 4 mg PO DAILY #1 tab.ds.pk 10/22/18 Unknown Rx DOSEPAK (21 tabs)] Ondansetron [Zofran ODT TAB] 4 mg PO Q8HR PRN #10 tab.rapdis 12/14/19 Unknown Rx ED Physical Exam - General Limitations: No Limitations General appearance: alert, in no apparent distress - Head Head exam: Present: atraumatic, normocephalic - Eye Eye exam: Present: normal appearance, PERRL Pupils: Present: normal accommodation - ENT ENT exam: Present: normal exam, mucous membranes moist - Neck Neck exam: Present: normal inspection, full ROM - Respiratory Respiratory exam: Present: normal lung sounds bilaterally. Absent: respiratory distress, wheezes, rales, chest wall tenderness - Cardiovascular Cardiovascular Exam: Present: regular rate, normal rhythm. Absent: systolic murmur, diastolic murmur, rubs, gallop - GI/Abdominal GI/Abdominal exam: Present: soft, normal bowel sounds. Absent: distended, te nderness, guarding, hyperactive bowel sounds, hypoactive bowel sounds - Extremities Exam Extremities exam: Present: normal inspection, full ROM, normal capillary refill - Back Exam Back exam: Present: normal inspection. Absent: CVA tenderness (R), CVA tenderness (L) - Neurological Exam Neurological exam: Present: alert, oriented X3, CN II-XII intact - Psychiatric Psychiatric exam: Present: normal affect, normal mood - Skin Skin exam: Present: warm, dry, intact, normal color. Absent: rash ED Course Vital Signs 12/14/19 00:28 Temperature 98.5 F Pulse Rate 83 Respiratory 18 Rate Blood Pressure 116/69 O2 Sat by Pulse 95 Oximetry ED Medical Decision Making - Lab Data Result diagrams: 12/14/19 00:50 12/14/19 00:50 - Medical Decision Making This patient presents with lower respiratory symptoms concerning for viral syndrome including flu. Patient does not meet criteria for COVID-19. Doubt pneumonia, sepsis or other serious bacterial infection or acute emergent condition. Is otherwise well- appearing with acceptable vitals and reassuring physical examination and is safe to be discharged home. Patient lacks serious medical comorbidities that would require admission. Patient is nontoxic and although symptomatic otherwise safe to go home. Will provide strict return precautions and instructions on self isolation/quarantine and anticipatory guidance. Critical care attestation.: If time is entered above; I have spent that time in minutes in the direct care of this critically ill patient, excluding procedure time. ED Disposition Clinical Impression: Viral syndrome, Vomiting Disposition: DC-01 TO HOME OR SELFCARE Is pt being admited?: No Does the pt Need Aspirin: No Condition: Stable Instructions: Viral Syndrome (ED), COVID-19, Acute Nausea and Vomiting (ED) Prescriptions: Ondansetron [Zofran ODT TAB] 4 mg PO Q8HR PRN #10 tab.rapdis PRN Reason: Nausea Referrals: PRIMARY CARE, [Primary Care Provider] - 3-5 Days [facility] [Provider Group] - 3-5 Days
[2019-12-14 07:14] VITALS: BP 122/78
== END 2019-12-14 06:05 | disposition home or self-care (01) ==
LOC: ED 23:25
DX: B34.9 Viral infection, unspecified (principal); K21.9 Gastro-esophageal reflux disease without esophagitis; J45.909 Unspecified asthma, uncomplicated; Z79.899 Other long term (current) drug therapy; Z90.49 Acquired absence of other specified parts of digestive tract
CPT/HCPCS: 36415; 80053; 81001; 83690; 84703; 85025; 99283

== ENCOUNTER 2020-02-21 00:38 | Emergency (ER) | payer SELFPAY ==
[2020-02-21 01:17] VITALS: BP 119/67
[2020-02-21] MEDS ORDERED: ACETAMINOPHEN W/CODEINE 300-30 MG TAB PO ONE (01:57)
[2020-02-21] MEDS ORDERED: dexAMETHasone 20 MG/5 ML VIAL IM ONE (01:58)
--- NOTE | 2020-02-21 01:58 | Emergency Department Report ---
ED General Adult HPI - General Chief complaint: Chest Pain Stated complaint: COVID+ CHEST PAIN Source: patient Mode of arrival: Ambulatory Limitations: No Limitations - History of Present Illness Initial comments: Patient is a 30-year-old female diagnosed with Covid who presents for pain with cough. There is no fever, chills, no nausea vomiting. Patient is tolerating p.o. hydration. Symptoms are exacerbated by coughing. Symptoms are relieved by rest. Pain is described as achy sharp 3/10. Pain is reproducible to cough. Patient denies shortness of breath. - Related Data Previous Rx's Medication Instructions Recorded Last Taken Type Cetirizine HCl [ZyrTEC] 10 mg PO DAILY #20 capsule 11/24/15 Unknown Rx Sulfamethoxazole/Trimethoprim 1 each PO BID #20 tablet 11/24/15 Unknown Rx [Bactrim DS TAB] Dicyclomine [Bentyl] 10 mg PO QID #15 capsule 04/24/18 Unknown Rx traMADoL [Ultram] 50 mg PO Q6HR PRN #10 tablet 04/24/18 Unknown Rx Ibuprofen [Motrin 600 MG tab] 600 mg PO Q8H PRN #30 tablet 08/30/18 Unknown Rx Nystas/Diphen/Xyl Visc/Mylanta 15 ml PO Q6H PRN #120 ml 08/30/18 Unknown Rx [Magic Mouthwash] Ibuprofen [Motrin 600 MG tab] 600 mg PO Q8H PRN #20 tablet 10/22/18 Unknown Rx Penicillin V Potassium 500 mg PO BID #20 tablet 10/22/18 Unknown Rx methylPREDNISolone [Medrol 4MG 4 mg PO DAILY #1 tab.ds.pk 10/22/18 Unknown Rx DOSEPAK (21 tabs)] Ondansetron [Zofran ODT TAB] 4 mg PO Q8HR PRN #10 tab.rapdis 12/14/19 Unknown Rx Acetaminophen/Codeine [Tylenol 1 tab PO Q6H PRN #12 tab 02/21/20 Unknown Rx /Codeine # 3 tab] Azithromycin 500 mg PO DAILY #5 tablet 02/21/20 Unknown Rx Allergies Allergy/AdvReac Type Severity Reaction Status Date / Time tramadol [From Ultram] Allergy Hives Verified 10/22/18 10:29 ED Review of Systems ROS: Stated complaint: COVID+ CHEST PAIN Other details as noted in HPI Constitutional: malaise Eyes: denies: eye pain, eye discharge, vision change ENT: throat pain, congestion Respiratory: cough. denies: shortness of breath, wheezing Cardiovascular: chest pain (chest wall pain ) Endocrine: no symptoms reported Gastrointestinal: denies: abdominal pain, nausea, diarrhea Genitourinary: denies: urgency, dysuria, discharge Musculoskeletal: denies: back pain, joint swelling, arthralgia Skin: denies: rash, lesions Neurological: denies: headache, weakness, paresthesias Psychiatric: denies: anxiety, depression Hematological/Lymphatic: denies: easy bleeding, easy bruising ED Past Medical Hx - Past Medical History Previous Medical History?: Yes Hx GERD: Yes Hx Asthma: Yes Additional medical history: Denies any previous medical history - Surgical History Past Surgical History?: Yes Hx Appendectomy: Yes (2015) - Social History Smoking Status: Never Smoker Substance Use Type: None - Medications Home Medications: Home Medications Medication Instructions Recorded Confirmed Last Taken Type Cetirizine HCl [ZyrTEC] 10 mg PO DAILY #20 capsule 11/24/15 Unknown Rx Sulfamethoxazole/Trimethoprim 1 each PO BID #20 tablet 11/24/15 Unknown Rx [Bactrim DS TAB] Dicyclomine [Bentyl] 10 mg PO QID #15 capsule 04/24/18 Unknown Rx traMADoL [Ultram] 50 mg PO Q6HR PRN #10 tablet 04/24/18 Unknown Rx Ibuprofen [Motrin 600 MG tab] 600 mg PO Q8H PRN #30 tablet 08/30/18 Unknown Rx Nystas/Diphen/Xyl Visc/Mylanta 15 ml PO Q6H PRN #120 ml 08/30/18 Unknown Rx [Magic Mouthwash] Ibuprofen [Motrin 600 MG tab] 600 mg PO Q8H PRN #20 tablet 10/22/18 Unknown Rx Penicillin V Potassium 500 mg PO BID #20 tablet 10/22/18 Unknown Rx methylPREDNISolone [Medrol 4MG 4 mg PO DAILY #1 tab.ds.pk 10/22/18 Unknown Rx DOSEPAK (21 tabs)] Ondansetron [Zofran ODT TAB] 4 mg PO Q8HR PRN #10 tab.rapdis 12/14/19 Unknown Rx Acetaminophen/Codeine [Tylenol 1 tab PO Q6H PRN #12 tab 02/21/20 Unknown Rx /Codeine # 3 tab] Azithromycin 500 mg PO DAILY #5 tablet 02/21/20 Unknown Rx ED Physical Exam - General Limitations: No Limitations General appearance: alert, in no apparent distress - Head Head exam: Present: atraumatic, normocephalic - Eye Eye exam: Present: normal appearance, EOMI Pupils: Present: normal accommodation - ENT ENT exam: Present: mucous membranes moist - Neck Neck exam: Present: normal inspection, full ROM. Absent: tenderness, lymphadenopathy - Respiratory Respiratory exam: Present: normal lung sounds bilaterally. Absent: respiratory distress, wheezes, stridor, chest wall tenderness (right anterior lateral chest wall pain ) - Cardiovascular Cardiovascular Exam: Present: regular rate, normal rhythm, normal heart sounds. Absent: systolic murmur, diastolic murmur, rubs, gallop - GI/Abdominal GI/Abdominal exam: Present: soft, normal bowel sounds. Absent: distended, tenderness - Rectal Rectal exam: Present: deferred - Extremities Exam Extremities exam: Present: normal inspection, full ROM, normal capillary refill - Back Exam Back exam: Present: normal inspection, full ROM. Absent: tenderness, CVA tenderness (R), CVA tenderness (L) - Neurological Exam Neurological exam: Present: alert, oriented X3, CN II-XII intact, normal gait, reflexes normal - Psychiatric Psychiatric exam: Present: normal affect, normal mood - Skin Skin exam: Present: warm, dry, intact, normal color. Absent: rash ED Course Vital Signs 02/21/20 01:08 Temperature 98.5 F Pulse Rate 86 Respiratory 18 Rate Blood Pressure 119/67 O2 Sat by Pulse 98 Oximetry ED Medical Decision Making - Radiology Data Radiology results: report reviewed, image reviewed Findings Reporting MD: Kennedy Mars Dictation Time: February 21, 2020 00:56 [employer]: Not available Procedure Manager Date: XR chest routine 2V INDICATION / CLINICAL INFORMATION: cough and DEIRDRE COMPARISON: None available. FINDINGS: SUPPORT DEVICES: None. HEART / MEDIASTINUM: No significant abnormality. LUNGS / PLEURA: Lungs are clear. Costophrenic sulci are sharp. No pneumothorax. ADDITIONAL FINDINGS: No significant additional findings. IMPRESSION: 1. No acute findings. Signer Name: Kennedy Mars MD Signed: 02/21/2020 12:56 AM Workstation Name: [id number] - Medical Decision Making Chest wall pain is improved with NSAIDs, O2 sat remains 98% after ambulation in ED. There is no respiratory distress. Chest wall pain is reproducible to palpation. There is no fever or chills. Plan DC to home with prescriptions. Follow-up PCP in 2 to 3 days. Continue to hydrate as directed. Patient verbalizes agreement and understanding with discharge plan. Patient DC'd to home in stable condition at this time. Critical care attestation.: If time is entered above; I have spent that time in minutes in the direct care of this critically ill patient, excluding procedure time. ED Disposition Clinical Impression: Cough, Chest wall pain Disposition: DC-01 TO HOME OR SELFCARE Is pt being admited?: No Does the pt Need Aspirin: No Condition: Stable Instructions: Chest Pain (ED) Prescriptions: Azithromycin 500 mg PO DAILY #5 tablet Acetaminophen/Codeine [Tylenol /Codeine # 3 tab] 1 tab PO Q6H PRN #12 tab PRN Reason: pain Referrals: TIFFANY CRAIG MD [Staff Physician] - 3-5 Days Forms: Work/School Release Form(ED) Time of Disposition: 02:10
== END 2020-02-21 02:29 | disposition home or self-care (01) ==
LOC: ED 00:38
DX: R05 Cough (principal); R07.89 Other chest pain; K21.9 Gastro-esophageal reflux disease without esophagitis; J45.909 Unspecified asthma, uncomplicated; Z90.49 Acquired absence of other specified parts of digestive tract; Z79.899 Other long term (current) drug therapy; Z88.8 Allergy status to other drugs, medicaments and biological substances
CPT/HCPCS: 71046; 93005; 96372; 99283; J1100

== ENCOUNTER 2020-09-01 16:54 | Emergency (ER) | payer SELFPAY ==
[2020-09-01 17:25] VITALS: BP 128/76
[2020-09-01 18:13] LABS: HCG Qualitative,Urine Negative (Negative)
[2020-09-01 18:18] LABS: Bilirubin,Urine NEG (Negative); Color,Urine Yellow (Yellow)
[2020-09-01 18:19] LABS: Blood,Urine LG (Negative); Mucus,Urine 1+ /HPF; Urobilinogen,Urine < 2.0 mg/dL (<2.0)
[2020-09-01 18:20] LABS: RBC,Urine > 182.0 /HPF (0.0-6.0)
--- NOTE | 2020-09-01 18:25 | Emergency Department Report ---
ED Female HPI - General Chief complaint: Vaginal Bleeding Stated complaint: CRAMPS HEAVY BLEEDING POSS MISCARRIAGE Time Seen by Provider: 09/01/20 18:09 Source: patient Mode of arrival: Ambulatory Limitations: No Limitations - History of Present Illness Initial comments: This is a 30-year-old female with no prior medical condition who presents to the ED today complaining of heavy vaginal bleeding that began 2 days ago and with mild pelvic cramping. Patient states that her last menstrual period was August 08, 2020. Patient states she usually does not have heavy bleeding during her cycle so she was a bit concerned. Patient states her cycle usually does get heavy to the second day. Patient states that 3 days ago with her cycle started it was heavier than normal and she has been having some mild intermittent cramping. Patient presents to the ED stating she is not sure if she is . She denies dysuria, hematuria, MD Complaint: vaginal bleeding - Related Data Previous Rx's Medication Instructions Recorded Last Taken Type Cetirizine HCl [ZyrTEC] 10 mg PO DAILY #20 capsule 11/24/15 Unknown Rx Sulfamethoxazole/Trimethoprim 1 each PO BID #20 tablet 11/24/15 Unknown Rx [Bactrim DS TAB] Dicyclomine [Bentyl] 10 mg PO QID #15 capsule 04/24/18 Unknown Rx traMADoL [Ultram] 50 mg PO Q6HR PRN #10 tablet 04/24/18 Unknown Rx Ibuprofen [Motrin 600 MG tab] 600 mg PO Q8H PRN #30 tablet 08/30/18 Unknown Rx Nystas/Diphen/Xyl Visc/Mylanta 15 ml PO Q6H PRN #120 ml 08/30/18 Unknown Rx [Magic Mouthwash] Penicillin V Potassium 500 mg PO BID #20 tablet 10/22/18 Unknown Rx methylPREDNISolone [Medrol 4MG 4 mg PO DAILY #1 tab.ds.pk 10/22/18 Unknown Rx DOSEPAK (21 tabs)] Ondansetron [Zofran ODT TAB] 4 mg PO Q8HR PRN #10 tab.rapdis 12/14/19 Unknown Rx Acetaminophen/Codeine [Tylenol 1 tab PO Q6H PRN #12 tab 02/21/20 Unknown Rx /Codeine # 3 tab] Azithromycin 500 mg PO DAILY #5 tablet 02/21/20 Unknown Rx Ibuprofen [Motrin 600 MG tab] 600 mg PO Q8H PRN #20 tablet 09/01/20 Unknown Rx Allergies Allergy/AdvReac Type Severity Reaction Status Date / Time tramadol [From Ultram] Allergy Hives Verified 10/22/18 10:29 ED Review of Systems ROS: Stated complaint: CRAMPS HEAVY BLEEDING POSS MISCARRIAGE Other details as noted in HPI Comment: All other systems reviewed and negative ED Past Medical Hx - Past Medical History Hx GERD: No Hx Asthma: Yes Additional medical history: Denies any previous medical history - Surgical History Hx Appendectomy: Yes (2015) - Social History Smoking Status: Never Smoker Substance Use Type: None - Medications Home Medications: Home Medications Medication Instructions Recorded Confirmed Last Taken Type Cetirizine HCl [ZyrTEC] 10 mg PO DAILY #20 capsule 11/24/15 Unknown Rx Sulfamethoxazole/Trimethoprim 1 each PO BID #20 tablet 11/24/15 Unknown Rx [Bactrim DS TAB] Dicyclomine [Bentyl] 10 mg PO QID #15 capsule 04/24/18 Unknown Rx traMADoL [Ultram] 50 mg PO Q6HR PRN #10 tablet 04/24/18 Unknown Rx Ibuprofen [Motrin 600 MG tab] 600 mg PO Q8H PRN #30 tablet 08/30/18 Unknown Rx Nystas/Diphen/Xyl Visc/Mylanta 15 ml PO Q6H PRN #120 ml 08/30/18 Unknown Rx [Magic Mouthwash] Penicillin V Potassium 500 mg PO BID #20 tablet 10/22/18 Unknown Rx methylPREDNISolone [Medrol 4MG 4 mg PO DAILY #1 tab.ds.pk 10/22/18 Unknown Rx DOSEPAK (21 tabs)] Ondansetron [Zofran ODT TAB] 4 mg PO Q8HR PRN #10 tab.rapdis 12/14/19 Unknown Rx Acetaminophen/Codeine [Tylenol 1 tab PO Q6H PRN #12 tab 02/21/20 Unknown Rx /Codeine # 3 tab] Azithromycin 500 mg PO DAILY #5 tablet 02/21/20 Unknown Rx Ibuprofen [Motrin 600 MG tab] 600 mg PO Q8H PRN #20 tablet 09/01/20 Unknown Rx ED Physical Exam - General Limitations: No Limitations General appearance: alert, in no apparent distress - Head Head exam: Present: atraumatic, normocephalic - Eye Eye exam: Present: normal appearance - ENT ENT exam: Present: mucous membranes moist - Neck Neck exam: Present: normal inspection, full ROM - Respiratory Respiratory exam: Present: normal lung sounds bilaterally. Absent: respiratory distress - Cardiovascular Cardiovascular Exam: Present: regular rate, normal rhythm. Absent: systolic murmur, diastolic murmur, rubs, gallop - GI/Abdominal GI/Abdominal exam: Present: soft, normal bowel sounds. Absent: distended, tenderness, guarding, rebound, mass, bruit - External exam: Present: normal external exam Speculum exam: Present: vaginal bleeding (mild blood in vault), other. Absent: vaginal discharge, foreign body, tissue Bi-manual exam: Present: normal bi-manual exam - Extremities Exam Extremities exam: Present: normal inspection, full ROM - Back Exam Back exam: Present: normal inspection - Neurological Exam Neurological exam: Present: alert, oriented X3, normal gait - Psychiatric Psychiatric exam: Present: normal affect, normal mood - Skin Skin exam: Present: warm, dry, intact, normal color. Absent: rash ED Course Vital Signs 09/01/20 17:23 Temperature 98.1 F Pulse Rate 80 Respiratory 20 Rate Blood Pressure 128/76 O2 Sat by Pulse 98 Oximetry ED Medical Decision Making - Medical Decision Making This 30-year-old female who presented with menorrhagia with irregular cycle. test negative, urinalysis was negative. Patient declined to have pain medication in the ED. All labs within normal limits hemoglobin hematocrit and hemoglobin within normal limits. Discussed all findings with the patient. Discussed with patient it is normal to have heavier cycles which may be secondary to uterine fibroids. 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 Gynecology is referred to patient. Patient was in no acute distress throughout ED stay. Patient understood instructions and states she will follow-up with her bowling ball weigher and packer. Critical care attestation.: If time is entered above; I have spent that time in minutes in the direct care of this critically ill patient, excluding procedure time. ED Disposition Clinical Impression: Dysmenorrhea, Menorrhagia with regular cycle Disposition: TO HOME OR SELFCARE Is pt being admited?: No Does the pt Need Aspirin: No Condition: Stable Instructions: Metrorrhagia, [id number], Dysmenorrhea, [id number] Additional Instructions: Make sure to follow up with the primary care physician as discussed. Take all your medications as you've been prescribed. If you have any worsening symptoms or develop new symptoms please return to ED immediately. Prescriptions: Ibuprofen [Motrin 600 MG tab] 600 mg PO Q8H PRN #20 tablet PRN Reason: Pain Referrals: PRIMARY CARE, [Primary Care Provider] - 3-5 Days [facility] [Provider Group] - 3-5 Days [facility] [Provider Group] - 3-5 Days Forms: Work/School Release Form(ED) Time of Disposition: 21:42
== END 2020-09-01 21:54 | disposition home or self-care (01) ==
LOC: ED 16:54
DX: N94.6 Dysmenorrhea, unspecified (principal); J45.909 Unspecified asthma, uncomplicated; Z90.49 Acquired absence of other specified parts of digestive tract; Z98.890 Other specified postprocedural states; Z88.6 Allergy status to analgesic agent; Z79.899 Other long term (current) drug therapy
CPT/HCPCS: 81001; 81025; 87086; 99283